=== PATIENT | female | born 1950 | race Caucasian/White ===

== ENCOUNTER → 2023-02-24 15:00 | Outpatient (CLI) | payer OTHER, SELFPAY ==
--- NOTE | ~2023-02-24 | XR_ITS ---
EXAM: XR ankle LT min 3V, XR foot LT min 3V DATE: 02/24/2023 15:49 HISTORY: LEFT ANKLE PAIN . COMPARISON: None available. FINDINGS: Decreased mineralization. No fracture or dislocation. No lytic or blastic lesion. Mild coty lux valgus. Mild degenerative change in the tibiotalar. Moderate degenerative change in the midfoot. Minimal Achilles and plantar enthesopathy. Pes planus. No erosion or periosteal change. Medial ankle soft tissue swelling. 2 subcutaneous edema. Calcified phleboliths. IMPRESSION: No acute osseous finding in the left ankle or foot. Reviewed, dictated and finalized at location K. IMPRESSION: No acute osseous finding in the left ankle or foot.
== END ==
PROVIDERS: PCP Internal Medicine; Visit Provider Nurse Practitioner
DX: M25.572 Pain in left ankle and joints of left foot (principal); M79.672 Pain in left foot
CPT/HCPCS: 73610; 73630

== ENCOUNTER 2023-08-20 11:37 | Outpatient (CLI) | payer OTHER, SELFPAY ==
--- NOTE | ~2023-08-20 | US_ITS ---
EXAMINATION: US venous doppler LE RT DATE: 08/20/2023 12:49 INDICATION: Right lower limb pain. TECHNIQUE: Grayscale ultrasound images without and with compression and Doppler ultrasound images of the right lower extremity veins were obtained. COMPARISON: None. FINDINGS: The visualized portions of right common femoral vein, profunda (deep) femoral vein, femoral vein, pop liteal vein, peroneal veins, posterior tibial veins, and greater saphenous vein outflow are patent. T here is a moderate-sized Grajeda's cyst. IMPRESSION: 1. No deep venous thrombosis. 2. Moderate-sized Grajeda's cyst. Reviewed, dictated and finalized at location A. 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
== END 2023-08-20 11:38 | disposition home or self-care (01) ==
PROVIDERS: PCP Internal Medicine; Visit Provider Nurse Practitioner
DX: M71.21 Synovial cyst of popliteal space [Baker], right knee (principal)
CPT/HCPCS: 93971

== ENCOUNTER 2025-06-08 18:38 | Observation (INO) | payer OTHER, SELFPAY ==
--- NOTE | ~2025-06-08 | CT_ITS ---
EXAM: CTA brain carotid - 06/08/2025 0:00 CDT History: 75 years old Female with vertigo TECHNIQUE: CT scan of the head without contrast. Subsequently CTA of the head and neck with intravenous contrast was performed. 3-D reconstructed images of cerebral artery circulation were generated on a [employer] workstation. Automatic exposure control was used for this study. CONTRAST: 100 cc of Omnipaque 350 was used for this study COMPARISON: None available. FINDINGS: CT HEAD WITHOUT CONTRAST: BRAIN PARENCHYMA: Felipe-white differentiation is maintained.No intra-axial hemorrhage or midline shift. No evidence of intraaxial mass. Mild chronic volume loss with scattered white matter hypodensities compatible with chronic microvascular ischemic changes. VENTRICLES/ EXTRA-AXIAL SPACES: No extra-axial hemorrhage or fluid collection. No evidence of extra-axial mass. No hydrocephalus. CALVARIUM AND SINUSES: No calvarial fracture. The visualized sinuses and mastoid air cells are clear. CTA: Normal branching pattern of the thoracic aorta. Great vessels of the neck are patent. RIGHT ANTERIOR CIRCULATION: Innominate and right common carotid artery is normal in caliber. No significant stenosis at the carotid bifurcation by NASCET criteria. Cervical segment of the internal carotid artery is normal in caliber. Cavernous and supraclinoid segments of the internal carotid artery patent. M1 segment and middle cerebral artery bifurcation are unremarkable. A1 segment, anterior communicating artery complex and A2 segment are within normal limits. LEFT ANTERIOR CIRCULATION: Left common carotid artery is normal in caliber. No significant stenosis at the carotid bifurcation by NASCET criteria. Cervical segment of the internal carotid artery is normal in caliber. Cavernous and supraclinoid segments of the internal carotid artery patent. M1 segment and middle cerebral artery bifurcation are unremarkable. A1 segment, anterior communicating artery complex and A2 segment are within normal limits. POSTERIOR CIRCULATION: Vertebral arteries are codominant and patent throughout the neck. Intradural vertebral arteries are normal in caliber and terminate as the basilar artery. Basilar artery is normal in caliber. P1 and P2 segments of the posterior cerebral arteries are normal in caliber. OTHER: Multilevel degenerative changes of the visualized cervical spine. Visualized lungs are clear. IMPRESSION: No evidence for acute intracranial hemorrhage or acute ischemic infarct on non- contrast CT. Unremarkable CTA of the head and neck. No evidence of cerebral artery aneurysm, stenosis or mass. *REFERENCES: NASCET CRITERIA: The degree of internal carotid artery (ICA) stenosis is based on NASCET criteria. Normal is no stenosis. Mild is less than 50% stenosis. Moderate is 50-69% stenosis. Severe is 70-99% stenosis. Total occlusion is no detectable patent lumen. Reviewed, dictated and finalized at location N. IMPRESSION: No evidence for acute intracranial hemorrhage or acute ischemic infarct on non- contrast CT. Unremarkable CTA of the head and neck. No evidence of cerebral artery aneurysm , stenosis or mass. *REFERENCES: NASCET CRITERIA: The degree of internal carotid artery (ICA) stenosis is based on NASCET criteria. Normal is no stenosis. Mild is less than 50% stenosis. Mode rate is 50-69% stenosis. Severe is 70-99% stenosis. Total occlusion is no detec table patent lumen.
--- NOTE | ~2025-06-08 | XR_ITS ---
XR chest 2V 06/08/2025 19:11 Indication: Dizziness Procedure: AP view of the chest Comparison: No prior studies for comparison. Findings: Cardiomegaly. There is hiatal hernia. No focal air space disease, pulmonary edema, pleural effusion or suspected pneumothorax. Impression: 1: No acute cardiopulmonary disease. Reviewed, dictated and finalized at location O. Impression: 1: No acute cardiopulmonary disease.
--- NOTE | ~2025-06-08 | MR_ITS ---
EXAMINATION: MR brain/brain stem wo/w con DATE: 06/09/2025 10:22 INDICATION: Vertigo TECHNIQUE: Magnetic resonance imaging (MRI) of the brain and brainstem was performed without and with 20 mL Multihance intravenous contrast. Sequences included sagittal and axial T1-weighted SE, axial diffusion-weighted FS SE, axial 3D SWAN, axial T2-weighted FLAIR, and axial T2-weighted FSE. Postcontrast axial and coronal T1-weighted SE was obtained. Apparent diffusion coefficient (ADC) maps were created. COMPARISON: Head CT and CT angiogram dated 06/09/2025 FINDINGS: There are no areas of restricted diffusion to suggest acute infarction. No intracranial hemorrhage or abnormal intracranial mass lesion. There are no intraparenchymal signal abnormalities seen on the other pulse sequences. The ventricles are symmetric and normal in size. There are no abnormal extra-axial fluid collections. Flow voids are seen in the cerebral arteries on the T2- weighted sequences consistent with their expected patency. Visualized orbits and soft tissues are unremarkable. There are no areas of abnormal enhancement on the post contrast images. IMPRESSION: 1. Normal brain MR. Reviewed, dictated and finalized at location A. IMPRESSION: 1. Normal brain MR.
--- NOTE | 2025-06-08 18:49 | ECG_ITS ---
Test Date: 2025-06-08 18:53:12 Measurements Intervals [place] Rate: 65 P: 9 [place]: 191 QRS: -25 QRSD: 97 T: 38 QT: 425 QTc: 444 Interpretive Statements SINUS RHYTHM BORDERLINE LEFT AXIS DEVIATION [QRS AXIS < -20] No previous ECG available for comparison Electronically Signed On 06-09-2025 11:30:35 CDT by Jonas Verdugo M.D.
[2025-06-08 18:50] VITALS: BP 156/85; PULSE 63; RESP 18; O2SAT 96
[2025-06-08 19:05] LABS: Hematocrit 42.1 % (37.0-47.0); Hemoglobin 13.9 g/dL (12.0-15.0); Immature Granulocyte Percent A 0.3 % (0-0.5); Lymphocytes Absolute Auto 2.71 K/mm3 (0.9-3.2); Mean Corpuscular HGB Conc 33.0 g/dl (32-36); Mean Corpuscular Hemoglobin 32.3 pg (26-34); Mean Corpuscular Volume 97.9 fl (80-100); Nucleated Red Blood Cells Absolute Auto 0.000 K/mm3 (0.0-0.012); Nucleated Red Blood Cells Perc 0.0 % (0.0-0.2); Platelet Count Result 249 k/mm3 (150-375); Red Blood Count 4.30 M/mm3 (4.2-5.4); White Blood Count 10.3 K/mm3 (4.5-10.0)
[2025-06-08] MEDS: ONDANSETRON INJ 4 MG/2 ML VIAL IV PUSH (19:05)
[2025-06-08 19:16] LABS: Alanine Aminotransferase 17 U/L (6-35); Albumin Level 4.2 g/dL (3.5-5.1); Alkaline Phosphatase 105 U/L (38-126); Anion Gap 10 mmol/L (4-12); Aspartate Amino Transferase 25 U/L (14-36); Bilirubin,Total 0.7 mg/dL (0.2-1.3); Blood Urea Nitrogen 16 mg/dL (7-17); Calcium 9.6 mg/dL (8.4-10.2); Carbon Dioxide 28 mmol/L (22-30); Chloride 94 mmol/L (98-107); Estimated CRCL calculation 59 ml/min; Estimated Glomerular Filt Rate > 60; Glucose 176 mg/dL (65-110); Potassium 3.6 mmol/L (3.4-5.0); Sodium 132 mmol/L (137-145); Total Protein 7.3 g/dL (6.3-8.2)
[2025-06-08 19:23] VITALS: BP 120/78; PULSE 63; RESP 18; TEMP 36.2; O2SAT 94
--- OUTSIDE RECORDS SUMMARY | 2025-06-08 20:07 | XMS_ITS | Clinical Summary ---
Author Organization [facility] Address [address] [place] [address] Care Team Providers Care Supervisor Toy Assembly Name Role Phone Lc Tay MD Unavailable [phone] Dylan Canseco MD Primary Care Provider [phone] Source Comments [facility],non-owned Affiliates and Associated Physician Practices is amultiple site organization consisting of ambulatory clinics and hospital sitesin [place], [place], [place] and [place]. This disclosure is being madepursuant to the Care Everywhere program and may not contain all information available regarding this patient. Last updated 18.[facility] Allergies Active Allergy Reactions Criticality Noted Date Comments Cefuroxime Itching Low 11/11/2017 Shellfish-Derived Products Nausea and/or Vomiting 12/09/2013 Sulfa Drugs Swelling 07/25/2017 Medications * Be aware that medications may not be up to date on this document. Alwaysverify current medications with the patient. metoprolol succinate XL 24hr (TOPROL XL) 100 MG tablet Take 1 (one) tablet by mouth once daily 7 Active hydroCHLOROthia zide (MICROZIDE) 12.5 MG capsule Take 1 (one) capsule by mouth once daily 7 Active cetirizine (ZYRTEC) 10 MG tablet Take 1 (one) tablet by mouth once daily Active triamcinolone (NASACORT ALLERGY 24HR) 55 MCG/ACT nasal inhaler Amma 1 (one) spray into each nostril once daily Active omeprazole EC (PRILOSEC OTC) 20 MG tablet Take 1 (one) tablet by mouth daily before breakfast Active Biotin 5000 MCG Take 1 (one) capsule by mouth once daily Active Calcium Carb-Cholecalci ferol (CALCIUM + D3 PO) Take 1 Tab by mouth once daily Active cyanocobalamin (VITAMIN B-12) 1000 MCG tablet Take 1 (one) tablet by mouth once daily Active Cholecalciferol (VITAMIN D3) 2000 UNITS Take by mouth once daily Active losartan (Cozaar) 25 MG tablet Take 1 (one) tablet by mouth once daily 4 Active Cranberry 50 MG Take 1 tablet by mouth once daily Active albuterol HFA (Proventil; Ventolin; Proair) 108 (90 Base) MCG/ACT inhaler Inhale 1 (one) puff to 2 (two) puffs by mouth every 6 hours as needed 4 Active gabapentin (Neurontin) 100 MG capsule Take 1 (one) capsule by mouth 2 times daily 4 Active Other Take 1 tablet by mouth 2 times daily Viviscal- hair growth Active acetaminophen (Tylenol) 500 MG capsule Take 2 (two) capsules by mouth 3 times daily Take for ten days then as needed. 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 Monthly or less 10/27/2024 Q2: How many drinks containi ng alcohol do you have on a typical day when you are drinking? Patient does not drink Q3: How often do you have si x or more drinks on one occasion? Never 10/27/2024 PHQ-2 Answer Date Recorded Patient Health Questionnaire-2 Score 1 04/01/2024 Hunger Vital Sign Answer Date Recorded Within the past 12 months, y ou worried that your food would run out before you got the money to buy more. Never true 10/27/19 25 Within the past 12 months, t he food you bought just didn't last and you didn't have money to get more. Never true 10/27/2024 Comments Unknown Sex and Gender Information Value Date Recorded Sex Assigned at Not on file Legal Sex Female 9:35 AM CDT Gender Identity Not on file Sexual Orientation Not on file Last Filed Vital Signs Vital Sign Reading Time Taken Comments Blood Pressure 141/63 10/28/2024 9:14 AM RESTAURANT HOST/HOSTESS Pulse 80 10/28/2024 9:14 AM RESTAURANT HOST/HOSTESS Temperature 36.6 C (97.9 F) 10/28/2024 7:35 AM RESTAURANT HOST/HOSTESS Respiratory Rate 17 10/28/2024 7:35 AM RESTAURANT HOST/HOSTESS Oxygen Saturation 92% 10/28/2024 9:14 AM RESTAURANT HOST/HOSTESS Inhaled Oxygen Concentration - - Weight 104.2 kg (229 lb 12.8 oz) 10/27/2024 6:06 AM RESTAURANT HOST/HOSTESS Height 163.8 cm (5' 4.5) 10/27/2024 6:06 AM RESTAURANT HOST/HOSTESS Body Mass Index 38.84 10/27/2024 6:06 AM RESTAURANT HOST/HOSTESS Plan of Treatment Health Maintenance Due Date Last Done Comments BONE DENSITY TESTING 1950 COLOGUARD (AGES 45-75) - COL ON CA SCREENING 1950 COLON MONITORING 1950 COLONOSCOPY - COLON CA SCREENING 1951 CT COLONOGRAPHY - COLON CA SCREENING 1950 Colorectal Cancer Screening 1950 FIT - COLON CA SCREENING 1950 FLEX SIG - COLON CA SCREENING 1950 MAMMOGRAM 1950 MEDICARE AWV 12 MONTHS 1950 DTAP/TDAP/TD VACCINES (1 - Tdap) 1970 PNEUMOCOCCAL VACCINE 50+ (1 of 2 - PCV) 1970 ZOSTER VACCINE (1 of 2) 2001 Respiratory Syncytial Virus (RSV) Vaccine Pt: or over 60 yrs (1 - Risk 60-74 years 1-dose series) 2011 COVID-19 VACCINE (1 - 2023-2 5 season) 2024 DEPRESSION SCREENING 10/06/2024 04/01/2024 INFLUENZA VACCINE (#1) 2025 08/07/2023 LIPID TESTING 03/18/2028 03/18/2023 HEPATITIS C SCREENING Completed 02/18/2022 HEPATITIS B VACCINE Aged Out No longe r eligible based on patient's age to complete this topic HIB VACCINE Aged Out No longer eligi ble based on patient's age to complete this topic HPV VACCINE Aged Out No longer eligi ble based on patient's age to complete this topic MENINGOCOCCAL (Group B) VACC INE SHARED DECISION-MAKING Aged Out No longer eligibl e based on patient's age to complete this topic MENINGOCOCCAL GROUPS A/C/Y/W VACCINE Aged Out No longer eligible b ased on patient's age to complete this topic Medical Devices Implanted Type Area Apartment Locator Device Identifier Shelf Expiration Date Model / Serial / Lot Cmnt Bone Cblt 40gm Hvisc Strl Implanted:Qty: 1 on 10/27/2017 by Lc Tay MD at [facility] Left: Knee [employer] 06/05/2019 [id number] / / [id number] Cmpnt Fem Kn Lt Cr Cmnt Prm Vngrd Intlk Implanted:Qty: 1 on 10/27/2017 by Lc Tay MD at [facility] Left: Knee [employer] 09/09/2027 [id number] / / [id number] Tray Tib 75mm Kn Cocr I Beam Implanted:Qty: 1 on 10/27/2017 by Lc Tay MD at [facility] Left: Knee [employer] 06/25/2027 [id number] / / [id number] Cmpnt Ptlr 28mm 1 Pg Wire Ascnt Arcm Kn Implanted:Qty: 1 on 10/27/2017 by Lc Tay MD at [facility] Left: Knee [employer] 09/24/2022 [id number] / / [id number] Brng [id number] Vngrd Arcm Kn Ant Stab Implanted:Qty: 1 on 10/27/2017 by Lc Tay MD at [facility] Left: Knee [employer] 08/06/2022 [id number] / / [id number] Cmpnt Ptlr Std 28mm 3 Pg Kn Ser A Implanted:Qty: 1 on 10/27/2024 by Lc Tay MD at [facility] Right: Knee [employer] 09/14/2029 [id number] / / [id number] Torrey Brng [id number] Vngrd Vivacit-E Kn Ant S Implanted:Qty: 1 on 10/27/2024 by Lc Tay MD at [facility] Right: Knee [employer] 10/30/2027 [id number] [place] / / [id number] Cmnt Bone Plc R 40gm Grn Implanted:Qty: 1 on 10/27/2024 by Lc Tay MD at [facility] Right: Knee [employer] 01/03/2027 [id number] / / [id number] Cmnt Bone Plc R 40gm Grn Implanted:Qty: 1 on 10/27/2024 by Lc Tay MD at [facility] Right: Knee [employer] 10/05/2026 [id number] / / [id number] Cmpnt Fem Kn Rt Cr Cmnt Prm Vngrd Intlk 70 Mm Implanted:Qty: 1 on 10/27/2024 by Lc Tay MD at [facility] Right: Knee [employer] 08/17/2034 [id number] / / [id number] Tray Tib 75mm Kn Cocr I Beam Implanted:Qty: 1 on 10/27/2024 by Lc Tay MD at [facility] Right: Knee [employer] 08/10/2034 [id number] / / [id number] Insurance MEDICARE Advance Directives * Full Code (Latest Code Status on File) Date Activated Date Inactivated Comments 10/27/2024 10:19 AM 10/28/2024 1:00 PM * Full Code Date Activated Date Inactivated Comments 10/27/2017 11:17 AM 10/29/2017 1:47 PM Care Teams Supervisor Toy Assembly Relationship Specialty Start Date End Date Dylan Canseco MD [address] [place] [id number] PCP - General Internal Medicine 10/13/24 [place] [id number] [facility] [address] [place] [id number] Orthopedic Surgery 02/07/17
--- NOTE | 2025-06-08 20:13 | ED.DIZZY ---
HPI - Dizziness General Chief Complaint: Dizziness <Maki Garcia PA-C - Last Filed: 06/09/25 01:58> Stated Complaint: dizziness <Maki Garcia PA-C - Last Filed: 06/09/25 01:58> Time Seen by Provider: 06/08/25 19:46 <Maki Garcia PA-C - Last Filed: 06/09/25 01:58> History of Present Illness HPI Narrative: 75-year-old female with reported history of hypertension and vertigo presents to the emergency department for dizziness. Patient states at 5:30 p.m. she had just finished eating mostaccioli and ice cream when she was sitting watching TV and developed dizziness, epigastric abdominal cramping and diaphoresis. Patient states the dizziness feels like the room is spinning. She states it improves when she sits still and it worsens when she looks around quickly. She denies diplopia, loss of vision, focal numbness or weakness, chest pain, shortness of breath, vomiting, diarrhea, fever, urinary complaints. She has had some nausea. Patient notes she has chronic sinus issues in her ears feel full currently. <Maki Garcia PA-C - Last Filed: 06/09/25 01:58> Related Data Home Medications: Home Medications ?Medication ?Instructions ?Recorded ?Confirmed ?Last Taken ?Type albuterol sulfate 90 mcg/actuation 2 puff inhalation Q6H PRN 06/09/25 06/09/25 Unknown History aerosol inhaler shortness of breath or wheezing aspirin 81 mg capsule 81 mg PO DAILY 06/09/25 06/09/25 06/08/25 History biotin 1,000 mcg chewable tablet 1,000 mcg PO DAILY 06/09/25 06/09/25 06/08/25 History calcium 600 mg (as 1 tablet PO DAILY 06/09/25 06/09/25 06/08/25 History carbonate)-vitamin D3 10 mcg (400 unit) tablet (Calcium 600 + D(3)) cetirizine 10 mg capsule (Zyrtec) 10 mg PO DAILY 06/09/25 06/09/25 06/08/25 History cholecalciferol (vitamin D3) 125 125 mcg PO DAILY 06/09/25 06/09/25 06/08/25 History mcg (5,000 unit) tablet (Vitamin D3) cranberry 500 mg capsule 500 mg PO DAILY 06/09/25 06/09/25 06/08/25 History cyanocobalamin (vitamin B-12) 500 500 mcg PO DAILY 06/09/25 06/09/25 06/08/25 History mcg tablet gabapentin 100 mg capsule 100 mg PO TID 06/09/25 06/09/25 06/08/25 History hydrochlorothiazide 12.5 mg capsule 25 mg PO EVERY OTHER DAY 06/09/25 06/09/25 06/08/25 History losartan 25 mg tablet 25 mg PO DAILY 06/09/25 06/09/25 06/08/25 History metoprolol succinate 100 mg 100 mg PO DAILY 06/09/25 06/09/25 06/08/25 History tablet,extended release 24 hr omeprazole magnesium 20 mg 20 mg PO DAILY 06/09/25 06/09/25 06/08/25 History tablet,delayed release (Prilosec OTC) triamcinolone acetonide 55 mcg 1 spray intranasal DAILY 06/09/25 06/09/25 06/08/25 History nasal spray aerosol (Nasacort) <Maki Garcia PA-C - Last Filed: 06/09/25 01:58> Allergies/Adverse Reactions: Allergies Allergy/AdvReac Type Severity Reaction Status Date / Time cefuroxime Allergy Swelling Verified 06/09/25 02:55 of the Eye clindamycin Allergy Rash Verified 06/09/25 02:55 Sulfa (Sulfonamide Allergy Swelling Verified 06/09/25 02:55 Antibiotics) of the Eye seafood Allergy Severe Anaphylactic Uncoded 06/09/25 02:55 Shock <SARA Mills Last Filed: 06/09/25 01:58> Review of Systems Review of Systems: All systems reviewed & are unremarkable except as noted in HPI and below <SARA Mills Last Filed: 06/09/25 01:58> PMFSH Family History Family History: Family History (Updated 06/09/25 @ 04:18 by Mara Delgado RN) Mother Arrhythmia Pancreatic cancer Father CHF (congestive heart failure) Emphysema of lung <SARA Mills Last Filed: 06/09/25 01:58> Social History Social History: Social History Smoking status: Never smoker Alcohol intake: current Drinks per week: 4 Substance use: never Lack of Transportation: No Lack of Food: Never True Current Housing: I Have Housing Concerned About Future Housing: No Difficulty Paying Gas/Electric Bills: No Difficulty Paying for Meds: No Currently Unemployed: YES Education: Decline to Answer Difficulty w/ Childcare or Family Care: No Spiritual care concerns: No <Maki Garcia PA-C - Last Filed: 06/09/25 01:58> Exam Narrative: GENERAL: Well-appearing, well-nourished, and in no acute distress. HEAD: Normocephalic, atraumatic. EYES: PERRLA and EOMI. Unidirectional horizontal nystagmus ENT: Nares clear, no rhinorrhea or epistaxis. Mucous membranes moist. Left TM with tympanosclerosis, no bulging or erythema, canal normal. Right TM with serous effusion, no bulging or erythema. Canal normal. NECK: Supple. CHEST: Clear to auscultation. No respiratory distress. HEART: Regular rate and rhythm. No murmur heard. Normal peripheral pulses. ABDOMEN: Soft, nontender, nondistended, normal active bowel sounds. EXTREMITIES: Normal range of motion. No edema. SKIN: Warm, dry, no rash. NEURO: No focal deficits. Alert and oriented x4. Cranial nerves 2-12 intact. Strength 5/5 in BUE and BLE. Sensation intact throughout. Normal epcclc-nl-mrsd. No pronator drift. <Maki Garcia PA-C - Last Filed: 06/09/25 01:58> Course CORE STICKER/PA Physician Supervision This visit was performed by both a physician and an APC. I performed all aspects of the MDM as documented. <Raulito Lewis MD - Last Filed: 06/09/25 04:33> Vital Signs Vital signs: Vital Signs Pulse Rate 63 06/08/25 18:50 Respiratory Rate 18 06/08/25 18:50 Blood Pressure 156/85 H 06/08/25 18:50 Pulse Oximetry 96 06/08/25 18:50 Oxygen Delivery Room Air 06/08/25 18:50 Temperature 97.2 F L 06/09/25 00:23 Pulse Rate 62 06/09/25 04:00 Respiratory Rate 18 06/09/25 00:23 Blood Pressure 158/85 H 06/09/25 00:23 Pulse Oximetry 97 06/09/25 00:23 Oxygen Delivery Room Air 06/08/25 18:50 <Maki Garcia PA-C - Last Filed: 06/09/25 01:58> Vital Signs Pulse Rate 63 06/08/25 18:50 Respiratory Rate 18 06/08/25 18:50 Blood Pressure 156/85 H 06/08/25 18:50 Pulse Oximetry 96 06/08/25 18:50 Oxygen Delivery Room Air 06/08/25 18:50 Temperature 97.2 F L 06/09/25 00:23 Pulse Rate 62 06/09/25 04:00 Respiratory Rate 18 06/09/25 00:23 Blood Pressure 158/85 H 06/09/25 00:23 Pulse Oximetry 97 06/09/25 00:23 Oxygen Delivery Room Air 06/08/25 18:50 <Raulito Lewis MD - Last Filed: 06/09/25 04:33> MDM - Dizziness MDM Narrative Medical decision making narrative: 75-year-old female presents emergency department for dizziness. Patient developed dizziness, epigastric abdominal cramping and diaphoresis after eating dinner this evening. She describes the dizziness is a spinning sensation that is improved when she sits still and worsens when she moves her head quickly. Vital signs with elevated blood pressure, otherwise unremarkable. Patient is afebrile and nontoxic appearing. She is neurovascularly intact. EKG shows normal sinus rhythm with rate of 65 ppm, normal NV interval, normal QRS duration, normal QTC, no ischemic changes. Troponin is undetectable x2. CBC with mild leukocytosis of 10.3, no anemia. Chemistries with mild hyponatremia of 132 and hypochloremia of 94, no prior for comparison. Fluids provided. Magnesium mildly low at 1.5 which is been intravenously repleted. UA with trace leuk esterase with 3-5 RBCs, no white blood cells or bacteria. Patient denies symptoms of UTI. Chest x-ray shows no acute cardiopulmonary disease. Orthostatic vital signs are normal. Patient received IV fluids, meclizine, Pepcid and Zofran. On re-evaluation states she was still having some dizziness received Valium with improvement, however dizziness returned. Patient was unable to be ambulated due to persistent dizziness. Sx sound vertiginous in nature. Will add on CTA brain and carotid. Will attempt scopolamine patch. Additionally patient is endorsing GERD symptoms, will provide GI cocktail and Protonix. CTA brain carotid shows no acute occlusion, severe stenosis, aneurysm or dissection. Patient re-evaluated and reports resolution of GERD symptoms. She does report improvement of vertigo after scopolamine, however states it is still present. Will trial Reglan. Plan to admit to the hospitalist for intractable vertigo. Patient will likely need MRI for further evaluation. Discussed with hospitalist CORE STICKER, Arely, who agrees to admission. <Maki Garcia PA-C - Last Filed: 06/09/25 01:58> Lab Data Result diagrams: 06/08/25 18:55 06/08/25 18:55 <Maki Garcia PA-C - Last Filed: 06/09/25 01:58> Labs: Lab Results 06/08/25 06/08/25 06/08/25 Range/Units 18:55 20:33 21:59 WBC 10.3 H (4.5-10.0) K/mm3 RBC 4.30 (4.2-5.4) M/mm3 Hgb 13.9 (12.0-15.0) g/dL Hct 42.1 (37.0-47.0) % MCV 97.9 (80-100) fl MCH 32.3 (26-34) pg MCHC 33.0 (32-36) g/dl RDW 14.0 (11.5-14.5) % Plt Count 249 (150-375) k/mm3 MPV 11.2 H (7.4-10.4) fl Immature Gran % (Auto) 0.3 (0-0.5) % Neut % (Auto) 57.4 (45.5-73.1) % Lymph % (Auto) 26.4 (18.3-44.2) % [place] % (Auto) 12.2 H (2.6-8.5) % Eos % (Auto) 3.0 (0-4.4) % Baso % (Auto) 0.7 (0.2-1.2) % Lymph # (Auto) 2.71 (0.9-3.2) K/mm3 [place] # (Auto) 1.3 H (0.1-0.6) K/mm3 Eos # (Auto) 0.3 (0-0.3) K/mm3 Baso # (Auto) 0.1 (0.0-0.1) K/mm3 Abs Immat Gran (auto) 0.03 (0.00-0.031) K/mm3 Absolute Neuts (auto) 5.9 (1.3-6.7) K/mm3 Absolute Nucleated RBC 0.000 (0.0-0.012) K/mm3 Nucleated RBC % 0.0 (0.0-0.2) % PT 13.2 (11.1-14.7) Seconds INR 1.0 APTT 28.0 (22.3-36.8) Seconds Sodium 132 L (137-145) mmol/L Potassium 3.6 (3.4-5.0) mmol/L Chloride 94 L (98-107) mmol/L Carbon Dioxide 28 (22-30) mmol/L Anion Gap 10 (4-12) mmol/L BUN 16 (7-17) mg/dL Creatinine 0.88 (0.7-1.0) mg/dL Estim Creat Clear Calc 59 ml/min Estimated GFR > 60 (59 - ) Glucose 176 H (65-110) mg/dL Calcium 9.6 (8.4-10.2) mg/dL Magnesium 1.5 L (1.6-2.3) mg/dL Total Bilirubin 0.7 (0.2-1.3) mg/dL AST 25 (14-36) U/L ALT 17 (6-35) U/L Alkaline Phosphatase 105 (38-126) U/L Troponin I < 0.012 < 0.012 (0.000-0.034) ng/mL Total Protein 7.3 (6.3-8.2) g/dL Albumin 4.2 (3.5-5.1) g/dL Urine Color Dark yellow (Yellow) Urine Appearance Cloudy H (Clear) Urine pH 5.5 (5.0-9.0) Ur Specific [place] 1.027 (1.001-1.035) Urine Protein Negative (Negative) mg/dL Urine Glucose (UA) Negative (Negative) mg/dL Urine Ketones Trace H (Negative) mg/dL Ur Blood (Man) Negative (Negative) Urine Nitrate Negative (Negative) Urine Bilirubin Negative (Negative) Urine Urobilinogen 1.0 (<2.0) mg/dL Leukocyte Esterase Rfl Trace H (Negative) LUZ/UL Urine RBC 3-5 H (0-2) /hpf Urine WBC 0-5 (0-3) /hpf Ur Squamous Epith Cells Moderate (Few) /hpf Urine Bacteria None seen /hpf Urine Casts 0-2 <Maki Garcia PA-C - Last Filed: 06/09/25 01:58> Lab Results 06/08/25 06/08/25 06/08/25 Range/Units 18:55 20:33 21:59 WBC 10.3 H (4.5-10.0) K/mm3 RBC 4.30 (4.2-5.4) M/mm3 Hgb 13.9 (12.0-15.0) g/dL Hct 42.1 (37.0-47.0) % MCV 97.9 (80-100) fl MCH 32.3 (26-34) pg MCHC 33.0 (32-36) g/dl RDW 14.0 (11.5-14.5) % Plt Count 249 (150-375) k/mm3 MPV 11.2 H (7.4-10.4) fl Immature Gran % (Auto) 0.3 (0-0.5) % Neut % (Auto) 57.4 (45.5-73.1) % Lymph % (Auto) 26.4 (18.3-44.2) % [place] % (Auto) 12.2 H (2.6-8.5) % Eos % (Auto) 3.0 (0-4.4) % Baso % (Auto) 0.7 (0.2-1.2) % Lymph # (Auto) 2.71 (0.9-3.2) K/mm3 [place] # (Auto) 1.3 H (0.1-0.6) K/mm3 Eos # (Auto) 0.3 (0-0.3) K/mm3 Baso # (Auto) 0.1 (0.0-0.1) K/mm3 Abs Immat Gran (auto) 0.03 (0.00-0.031) K/mm3 Absolute Neuts (auto) 5.9 (1.3-6.7) K/mm3 Absolute Nucleated RBC 0.000 (0.0-0.012) K/mm3 Nucleated RBC % 0.0 (0.0-0.2) % PT 13.2 (11.1-14.7) Seconds INR 1.0 APTT 28.0 (22.3-36.8) Seconds Sodium 132 L (137-145) mmol/L Potassium 3.6 (3.4-5.0) mmol/L Chloride 94 L (98-107) mmol/L Carbon Dioxide 28 (22-30) mmol/L Anion Gap 10 (4-12) mmol/L BUN 16 (7-17) mg/dL Creatinine 0.88 (0.7-1.0) mg/dL Estim Creat Clear Calc 59 ml/min Estimated GFR > 60 (59 - ) Glucose 176 H (65-110) mg/dL Calcium 9.6 (8.4-10.2) mg/dL Magnesium 1.5 L (1.6-2.3) mg/dL Total Bilirubin 0.7 (0.2-1.3) mg/dL AST 25 (14-36) U/L ALT 17 (6-35) U/L Alkaline Phosphatase 105 (38-126) U/L Troponin I < 0.012 < 0.012 (0.000-0.034) ng/mL Total Protein 7.3 (6.3-8.2) g/dL Albumin 4.2 (3.5-5.1) g/dL Urine Color Dark yellow (Yellow) Urine Appearance Cloudy H (Clear) Urine pH 5.5 (5.0-9.0) Ur Specific [place] 1.027 (1.001-1.035) Urine Protein Negative (Negative) mg/dL Urine Glucose (UA) Negative (Negative) mg/dL Urine Ketones Trace H (Negative) mg/dL Ur Blood (Man) Negative (Negative) Urine Nitrate Negative (Negative) Urine Bilirubin Negative (Negative) Urine Urobilinogen 1.0 (<2.0) mg/dL Leukocyte Esterase Rfl Trace H (Negative) LUZ/UL Urine RBC 3-5 H (0-2) /hpf Urine WBC 0-5 (0-3) /hpf Ur Squamous Epith Cells Moderate (Few) /hpf Urine Bacteria None seen /hpf Urine Casts 0-2 <Raulito Lewis MD - Last Filed: 06/09/25 04:33> Discharge Plan Discharge Clinical Impression: Hypomagnesemia, Vertigo <Maki Garcia PA-C - Last Filed: 06/09/25 01:58> Patient Disposition: Still a Patient <Maki Garcia PA-C - Last Filed: 06/09/25 01:58> Condition: Stable <Maki Garcia PA-C - Last Filed: 06/09/25 01:58>
[2025-06-08 20:28] LABS: Magnesium 1.5 mg/dL (1.6-2.3)
[2025-06-08] MEDS: FAMOTIDINE 20 MG/2 ML VIAL IV PUSH (20:39)
[2025-06-08] MEDS: MECLIZINE HCL 25 MG TABLET PO (20:39)
[2025-06-08 20:40] LABS: Troponin I < 0.012 ng/mL (0.000-0.034)
[2025-06-08] MEDS: SODIUM CHLORIDE 0.9% IV 1,000 ML 999 ML IV CONT (20:41)
[2025-06-08] MEDS: MAGNESIUM SULF 1 GM/D5W 100 ML 1 GM/100 ML BAG IVPB (20:44)
[2025-06-08 20:53] LABS: Add Urine Microscopic? YES; Appearance Urine Cloudy (Clear); Glucose Urine UA Negative (Negative); Leukocyte Esterase Ur Trace LEU/UL (Negative); Nitrate Urine Negative (Negative); Non Pathogenic Casts 0-2; Specific Grav Ur 1.027 (1.001-1.035)
--- NOTE | 2025-06-08 21:55 | ECG_ITS ---
Test Date: 2025-06-08 22:17:51 Measurements Intervals [place] Rate: 66 P: -40 CT: 148 QRS: -28 QRSD: 84 T: 26 QT: 402 QTc: 422 Interpretive Statements SINUS RHYTHM BORDERLINE LEFT AXIS DEVIATION [QRS AXIS < -20] Compared to ECG 06/08/2025 18:53:12 No significant changes Electronically Signed On 06-09-2025 11:33:07 CDT by Jonas Verdugo M.D.
[2025-06-08 21:58] VITALS: BP 123/77; PULSE 62
[2025-06-08 22:01] VITALS: BP 139/85; PULSE 56
[2025-06-08 22:02] VITALS: BP 145/106; PULSE 64
[2025-06-08] MEDS: diazePAM INJ (*CRX) 10 MG/2 ML SYRINGE 5 MG IV PUSH (22:08)
[2025-06-08 22:25] LABS: Troponin I < 0.012 ng/mL (0.000-0.034)
[2025-06-09] VITALS (12 sets, daily range): BP systolic 106–158; BP diastolic 59–85; PULSE 53–72; RESP 16–19; TEMP 36.2–36.6; O2SAT 93–97; BMI 40.0; BMI 40.6
[2025-06-09] MEDS: BELLADONNA ALK/PHENOB ELIX 10 ML, MAG HYDROX/ALUMINUM HYD/SIMETH 30 ML, LIDOCAINE 2% VI... PO (00:19)
[2025-06-09] MEDS: SCOPOLAMINE 1 MG PATCH 1 PATCH TRANSDERM (00:19)
[2025-06-09] MEDS: PANTOPRAZOLE SODIUM IV 40 MG VIAL IV PUSH (00:19)
[2025-06-09 00:20] LABS: INR 1.0; Partial Thromboplastin Time 28.0 Seconds (22.3-36.8); Prothrombin Time 13.2 Seconds (11.1-14.7)
[2025-06-09] MEDS: METOCLOPRAMIDE HCL INJ 10 MG/2 ML VIAL IV PUSH (02:01)
--- NOTE | 2025-06-09 02:42 | PC.NURSE ---
This patient, Debo Le, was admitted to IMU Room 206-02. Patient/family oriented to hospital policies and general routines including ID bracelet, bed and alarms, visiting hours, pain management, procedures, bathroom and other care routines, personal items, smoking policy, room service/diet, and visiting hours. Information on how to activate the Rapid Response Team has been discussed. Patient/Family are encouraged to report perceived risks to care and to ask questions if they do not understand what they are told or what they should do.
--- NOTE | 2025-06-09 06:19 | PM.IMHP ---
H&P: HPI History of Present Illness Date/Time: 06/09/25 06:19 Chief Complaint: Dizziness Narrative: This is a 75-year-old female patient with a history of hypertension. The patient presented to the emergency room with complaints of dizziness. Patient stated that she was sitting in her chair watching TV around 5:30 p.m. last night. She was sitting in her chair eating watching TV when she developed this dizziness, epigastric abdominal cramping and diaphoresis. She stated the room was spinning. It was not related to position.She stated that she has been having severe allergies. she has been using nasal sprays for her allergies. The patient stated that she feels fullness in her ear and has some head congestion. The patient stated she feels that the room is spinning whether she is standing or sitting. It is not positional. She denies any chest pain or shortness of breath. Her chest x-ray was read as no acute cardiopulmonary disease. ER reported that her head and neck CTA were negative. She was given Zofran, IV fluids, meclizine, Valium, Reglan, and a scopolamine patch to the emergency room. Patient stated that her vertigo was intractable. She was also complaining of an upset stomach and was given Pepcid and a GI cocktail as well as Protonix. Her white count was noted to be 10.3. Her sodium was low at 132, chloride 94, and glucose 176. Troponins were negative. Her magnesium level slightly low at 1.5 and she was supplemented with IV magnesium in the emergency room. The patient is being admitted to IMU for observation status on the date of service of 06/09/2025. Review of Systems Review of Systems: All systems reviewed & are unremarkable except as noted in HPI and below Constitutional: Constitutional: Reports as per HPI and Reports no additional constitutional complaints Eyes: Eyes: Reports as per HPI and Reports no additional eye complaints ENT: Reports system reviewed and no additional complaints, except as documented and Reports Normal hearing present Cardiovascular: Cardiovascular: Reports no additional cardiovascular complaints Respiratory: Respiratory: Reports no additional respiratory complaints and Reports no additional respiratory complaints Gastrointestinal: Gastrointestinal: Reports as per HPI and Reports no additional gastrointestinal complaints Musculoskeletal: Musculoskeletal: Reports no additional musculoskeletal complaints Integumentary/Breasts: Skin/Breast: Reports system reviewed and no additional complaints, except as docu and Reports as per HPI Neurologic: Reports system reviewed and no additional complaints, except as documented and Reports as per HPI Psychiatric: Psychiatric: Reports no additional psychiatric complaints and Reports as per HPI Endocrine: Endocrine: Reports no additional endocrine complaints Hematologic/Lymphatic: Hematologic/Lymphatic: Reports no additional hematologic/lymphatic complaints Allergic/Immunologic: Allergic/Immunologic: Reports no additional allergic/immunologic complaints [facility] Past Medical History Medical History (Updated 06/09/25 @ 18:02 by Bret Olmos MD) Benign paroxysmal positional vertigo Cataract Gastroesophageal reflux disease HTN (hypertension) with goal to be determined Seasonal allergic rhinitis Surgical History Surgical History Total knee replacement status Bilateral History of tonsillectomy and adenoidectomy Family History Family History Mother Arrhythmia Pancreatic cancer Father CHF (congestive heart failure) Emphysema of lung Social History Social History Social History: The patient is . Her son continues to live with her. She has 4 children. 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 Smoking status: Never smoker Alcohol intake: current Drinks per week: 4 Substance use: never Lack of Transportation: No Lack of Food: Never True Current Housing: I Have Housing Concerned About Future Housing: No Difficulty Paying Gas/Electric Bills: No Difficulty Paying for Meds: No Currently Unemployed: YES Education: Decline to Answer Difficulty w/ Childcare or Family Care: No Spiritual care concerns: No Meds Home Medications and Allergies Home Medications ?Medication ?Instructions ?Recorded ?Confirmed ?Type albuterol sulfate 90 mcg/actuation 2 puff inhalation Q6H PRN 06/09/25 06/09/25 History aerosol inhaler shortness of breath or wheezing aspirin 81 mg capsule 81 mg PO DAILY 06/09/25 06/09/25 History biotin 1,000 mcg chewable tablet 1,000 mcg PO DAILY 06/09/25 06/09/25 History calcium 600 mg (as 1 tablet PO DAILY 06/09/25 06/09/25 History carbonate)-vitamin D3 10 mcg (400 unit) tablet (Calcium 600 + D(3)) cetirizine 10 mg capsule (Zyrtec) 10 mg PO DAILY 06/09/25 06/09/25 History cholecalciferol (vitamin D3) 125 125 mcg PO DAILY 06/09/25 06/09/25 History mcg (5,000 unit) tablet (Vitamin D3) cranberry 500 mg capsule 500 mg PO DAILY 06/09/25 06/09/25 History cyanocobalamin (vitamin B-12) 500 500 mcg PO DAILY 06/09/25 06/09/25 History mcg tablet gabapentin 100 mg capsule 100 mg PO TID 06/09/25 06/09/25 History hydrochlorothiazide 12.5 mg capsule 25 mg PO EVERY OTHER DAY 06/09/25 06/09/25 History losartan 25 mg tablet 25 mg PO DAILY 06/09/25 06/09/25 History meclizine 25 mg tablet 25 mg PO BID PRN dizziness 14 days 06/09/25 Rx #10 tabs metoprolol succinate 100 mg 100 mg PO DAILY 06/09/25 06/09/25 History tablet,extended release 24 hr omeprazole magnesium 20 mg 20 mg PO DAILY 06/09/25 06/09/25 History tablet,delayed release (Prilosec OTC) triamcinolone acetonide 55 mcg 1 spray intranasal DAILY 06/09/25 06/09/25 History nasal spray aerosol (Nasacort) Allergies Allergy/AdvReac Type Severity Reaction Status Date / Time cefuroxime Allergy Swelling Verified 06/09/25 02:55 of the Eye clindamycin Allergy Rash Verified 06/09/25 02:55 Sulfa (Sulfonamide Allergy Swelling Verified 06/09/25 02:55 Antibiotics) of the Eye seafood Allergy Severe Anaphylactic Uncoded 06/09/25 02:55 Shock Vital Signs Vital Signs - 24 hr 06/08/25 18:50 06/08/25 19:23 06/08/25 21:58 Temperature 97.2 F L Pulse Rate 63 63 62 Respiratory Rate 18 18 Blood Pressure 156/85 H 120/78 123/77 Pulse Oximetry 96 94 Oxygen Delivery Room Air 06/08/25 22:01 06/08/25 22:02 06/09/25 00:23 Temperature 97.2 F L Pulse Rate 56 L 64 69 Respiratory Rate 18 Blood Pressure 139/85 145/106 H 158/85 H Pulse Oximetry 97 Oxygen Delivery 06/09/25 04:00 06/09/25 04:00 06/09/25 04:00 Temperature 97.6 F Pulse Rate 62 71 72 Respiratory Rate 19 Blood Pressure 121/69 Pulse Oximetry 93 Oxygen Delivery Exam Const: General: cooperative, healthy appearing, comfortable, no acute distress, well developed, awake, Physically active, average body habitus and well nourished Nutritional Appearance: average body habitus and well nourished Orientation/consciousness: oriented to person, oriented to place, oriented to time and patient oriented x3 Limitations: no limitations HENMT: Head: normal to inspection, No palpable skull fracture present, normocephalic, atraumatic and abrasion Ears: hearing grossly normal bilaterally and external ears normal Face/Nose/Sinus: Normal external nose present Eyes: General: appearance normal, both eyes and all related structures Alignment and Position: alignment normal Periorbital: periorbital findings normal Eyelids: eyelids normal Conjunctivae: conjunctivae normal EOM: EOMs intact bilaterally Neck: Neck: normal visual inspection, full ROM and no lymphadenopathy Carotids: normal carotid upstroke Lymphatic: no lymphadenopathy noted Chest: Chest palpation & inspection: normal inspection of the chest Resp: Effort & Inspection: normal respiratory effort Auscultation: clear to auscultation bilaterally Cardio: Palpation: normal PMI Rate: regular rate Rhythm: regular rhythm Heart sounds: S1 normal heart sound present and S2 normal heart sound present Peripheral pulses: Peripheral pulses 2+ throughout GI: Inspection: normal to inspection Auscultation: normal bowel sounds Rectal Exam: deferred Back/Spine/Pelvis: Back: no CVA tenderness Cervical Spine: cervical ROM normal Skin: General skin exam: normal color Lesions: no lesions Rashes: no rashes Trauma: no lacerations or abrasions Wounds: no wounds Hair: normal Nails: normal Neuro: General: oriented to person, oriented to place, oriented to time and patient oriented x3 Cranial nerves: Yes CN's II-XII intact bilaterally, Yes facial sensation intact/muscles of mastication intact, Yes Intact sense of smell present, Yes Equal, round and reactive pupils present, Yes Normal accommodation reflex present, Yes Normal hearing present and Yes Nystagmus present with left lateral gaze Cognition (Neuro): normal cognition Speech: normal speech Gait exam (Neuro): Normal gait present Motor exam (neuro): 5/5 motor strength present throughout, Pronator motor function not present, No tremor noted and Motor abnormalities not present Sensory Exam: normal sensation Coordination: [id number] test normal and Normal rapid alternating movements of the distal lower extremity present (Neuro) Extrem: General: normal to inspection Right upper extremity: normal to inspection and shoulder/upper arm Left upper extremity: normal to inspection and shoulder/upper arm Right lower extremity: normal to inspection Left lower extremity: normal to inspection Psych: Appearance: grossly normal Mental Status: mental status grossly normal Speech and movement: Normal speech and movement present Affect: normal affect Attitude: cooperative Thought process: Normal thought process present Thought content: Yes Normal thought content present Insight: Good insight present (Psych) Judgement: Good judgement present (Psych) H&P: Results Labs Labs: Short CBC 06/08/25 Range/Units 18:55 WBC 10.3 H (4.5-10.0) K/mm3 Hgb 13.9 (12.0-15.0) g/dL Hct 42.1 (37.0-47.0) % Plt Count 249 (150-375) k/mm3 BMP 06/08/25 18:55 Sodium 132 L Potassium 3.6 Chloride 94 L Carbon Dioxide 28 BUN 16 Creatinine 0.88 Glucose 176 H Calcium 9.6 Cardiac Enzymes 06/08/25 06/08/25 Range/Units 18:55 21:59 Troponin I < 0.012 < 0.012 (0.000-0.034) ng/mL Liver Function 06/08/25 Range/Units 18:55 Total Bilirubin 0.7 (0.2-1.3) mg/dL AST 25 (14-36) U/L ALT 17 (6-35) U/L Alkaline Phosphatase 105 (38-126) U/L Albumin 4.2 (3.5-5.1) g/dL Urine 06/08/25 Range/Units 20:33 Urine Color Dark yellow (Yellow) Urine Appearance Cloudy H (Clear) Urine pH 5.5 (5.0-9.0) Ur Specific [place] 1.027 (1.001-1.035) Urine Protein Negative (Negative) mg/dL Urine Glucose (UA) Negative (Negative) mg/dL Imaging Chest x-ray: Radiologist's impression: Impressions Chest X-Ray 06/08/25 19:28 Impression: 1: No acute cardiopulmonary disease. Assessment and Plan Assessment and plan (1) Vertigo: Code(s): R42 - Dizziness and giddiness Status: Acute Assessment and Plan: -orthostatic blood pressures every shift. -is reported that her CT of the head and neck was negative. -may consider PT evaluation for vertigo. -the patient stated that this morning that her vertigo is pretty much resolved. -carotid Dopplers have been ordered. -continue with meclizine. -this may be related to debris in the ear. No epileptic procedure has been performed today. -the patient has severe allergies and she should continue with her nasal spray. -MRI of the brain has been ordered as well. -she was given Reglan, IV fluids, and Valium in the emergency room. In the emergency room she did have intractable vertigo. However it sounds like this morning her symptoms have pretty much resolved. -no further IV fluids were continued. -we discussed [place] maneuver and the patient declined at this time. (2) HTN (hypertension) with goal to be determined: Code(s): I10 - Essential (primary) hypertension Status: Acute Assessment and Plan: -blood pressure stable the patient is on metoprolol and will continue with that as long as her blood pressures are stable. -continue losartan -monitor daily BMP (3) Seasonal allergic rhinitis: Code(s): J30.2 - Other seasonal allergic rhinitis Status: Acute Assessment and Plan: -patient is on meclizine which is an antihistamine. -continue with nasal sprays -continue with inhaler (4) Low magnesium level: Code(s): R79.0 - Abnormal level of blood mineral Status: Acute Assessment and Plan: -magnesium level was slightly low and has been replaced in the emergency room. -recheck magnesium later today. Quality VTE Prophylaxis VTE prophylaxis: mechanical ordered
[2025-06-09] MEDS: METOPROLOL SUCCINATE EXT REL 100 MG TABCR PO (09:05)
[2025-06-09] MEDS: MECLIZINE HCL 6.25 MG TABLET PO ×3 (09:05→16:23)
[2025-06-09] MEDS: LOSARTAN POTASSIUM 25 MG TABLET PO (09:06)
[2025-06-09] MEDS: PANTOPRAZOLE 40 MG TABLET PO (09:06)
[2025-06-09] MEDS: CALCIUM/VITAMIN D 500 MG/5 MCG (200 I.U.) TABLET PO (09:06)
[2025-06-09] MEDS: CHOLECALCIFEROL (VITAMIN D3) 125 MCG (5,000 UNITS) TABLET PO (09:06)
[2025-06-09] MEDS: CYANOCOBALAMIN 500 MCG TABLET PO (09:06)
[2025-06-09] MEDS: FLUTICASONE PROPIONATE 0.05% NA SPR 16 GM BTL (*BKC) 2 SPRAY NASAL (09:07)
[2025-06-09 11:30] LABS: Magnesium 1.8 mg/dL (1.6-2.3)
--- NOTE | 2025-06-09 16:41 | PM.DS ---
DS: Admitting Diagnosis Discharge Date 06/09/25 Admitting Diagnosis Dizziness DS: Discharge Diagnosis Discharge Diagnosis (1) Vertigo: Code(s): R42 - Dizziness and giddiness Status: Acute DS: Summary Hospital Course Hospital Course: This is a 75-year-old female patient with a history of hypertension. The patient presented to the emergency room with complaints of dizziness. ER eval CXR, CTA head and neck no acute changes. MRI brain showed normal brain exam. neurology evaluated and deems symptoms likely from inner ear symptoms and thus recommended outpatient vestibular therapy. Patient was discharged with outpatient Vestibular therapy PT. F/u with PCP in 3- 5 days, F/u with Neurology as instructed Time Spent with Patient Time attestation: Total time spent providing and/or coordinating discharge services: DS: Data Data Completed and Pending Labs on day of discharge: Labs from last 24 hours 06/09/25 06/08/25 06/08/25 11:02 21:59 20:33 WBC RBC Hgb Hct MCV MCH MCHC RDW Plt Count MPV Immature Gran % (Auto) Neut % (Auto) Lymph % (Auto) Stephens % (Auto) Eos % (Auto) Baso % (Auto) Lymph # (Auto) Stephens # (Auto) Eos # (Auto) Baso # (Auto) Abs Immat Gran (auto) Absolute Neuts (auto) Absolute Nucleated RBC Nucleated RBC % PT 13.2 INR 1.0 APTT 28.0 Sodium Potassium Chloride Carbon Dioxide Anion Gap BUN Creatinine Estim Creat Clear Calc Estimated GFR Glucose Calcium Magnesium 1.8 Total Bilirubin AST ALT Alkaline Phosphatase Troponin I < 0.012 Total Protein Albumin Urine Color Dark yellow Urine Appearance Cloudy H Urine pH 5.5 Ur Specific [place] 1.027 Urine Protein Negative Urine Glucose (UA) Negative Urine Ketones Trace H Ur Blood (Man) Negative Urine Nitrate Negative Urine Bilirubin Negative Urine Urobilinogen 1.0 Leukocyte Esterase Rfl Trace H Urine RBC 3-5 H Urine WBC 0-5 Ur Squamous Epith Cells Moderate Urine Bacteria None seen Urine Casts 0-2 06/08/25 18:55 WBC 10.3 H RBC 4.30 Hgb 13.9 Hct 42.1 MCV 97.9 MCH 32.3 MCHC 33.0 RDW 14.0 Plt Count 249 MPV 11.2 H Immature Gran % (Auto) 0.3 Neut % (Auto) 57.4 Lymph % (Auto) 26.4 Stephens % (Auto) 12.2 H Eos % (Auto) 3.0 Baso % (Auto) 0.7 Lymph # (Auto) 2.71 Stephens # (Auto) 1.3 H Eos # (Auto) 0.3 Baso # (Auto) 0.1 Abs Immat Gran (auto) 0.03 Absolute Neuts (auto) 5.9 Absolute Nucleated RBC 0.000 Nucleated RBC % 0.0 PT INR APTT Sodium 132 L Potassium 3.6 Chloride 94 L Carbon Dioxide 28 Anion Gap 10 BUN 16 Creatinine 0.88 Estim Creat Clear Calc 59 Estimated GFR > 60 Glucose 176 H Calcium 9.6 Magnesium 1.5 L Total Bilirubin 0.7 AST 25 ALT 17 Alkaline Phosphatase 105 Troponin I < 0.012 Total Protein 7.3 Albumin 4.2 Urine Color Urine Appearance Urine pH Ur Specific [place] Urine Protein Urine Glucose (UA) Urine Ketones Ur Blood (Man) Urine Nitrate Urine Bilirubin Urine Urobilinogen Leukocyte Esterase Rfl Urine RBC Urine WBC Ur Squamous Epith Cells Urine Bacteria Urine Casts Discharge Plan Discharge Attending physician on discharge: Henrry Rust Consulting providers: Bret Olmos Discharging Clinician: Henrry Rust Anticipated Discharge Date/Time: 06/09/25 16:35 Patient Disposition: Home Activity: as tolerated Diet: as tolerated and regular Patient Instructions: Antibiotic Form Patient Language: Spanish Stand Alone Forms: General Discharge Information Follow-up/Referrals: Harleen,Dylan Duarte MD [Primary Care Provider] Referral Note: F/u with PCP in 3-5 days Bret Olmos MD [Physician, Neurology] Referral Note: F/u with Neurology as instructed Discharge Medications: New meclizine 25 mg tablet 25 mg PO BID PRN (Reason: dizziness) 14 Days Qty: 10 0RF Continued albuterol sulfate 90 mcg/actuation HFA aerosol inhaler 2 puff INHALATION Q6H PRN (Reason: shortness of breath or wheezing) gabapentin 100 mg capsule 100 mg PO TID hydrochlorothiazide 12.5 mg capsule 25 mg PO EVERY OTHER DAY losartan 25 mg tablet 25 mg PO DAILY metoprolol succinate 100 mg tablet extended release 24 hr 100 mg PO DAILY aspirin 81 mg capsule 81 mg PO DAILY calcium carbonate-vitamin D3 [Calcium 600 + D(3)] 600 mg-10 mcg (400 unit) tablet 1 tablet PO DAILY cyanocobalamin (vitamin B-12) 500 mcg tablet 500 mcg PO DAILY cholecalciferol (vitamin D3) [Vitamin D3] 125 mcg (5,000 unit) tablet 125 mcg PO DAILY biotin 1,000 mcg tablet,chewable 1,000 mcg PO DAILY cranberry 500 mg capsule 500 mg PO DAILY Rx Instructions: administer with a meal omeprazole magnesium [Prilosec OTC] 20 mg tablet,delayed release (DR/EC) 20 mg PO DAILY Zyrtec 10 mg capsule 10 mg PO DAILY triamcinolone acetonide [Nasacort] 55 mcg aerosol,spray 1 spray intranasal DAILY Rx Instructions: administer into each nostril Other Ambulatory Orders: PT Outpatient Eval and Treat (ONCE) Timeframe: [id number] Location: Determined by Patient Ordered By: Henrry Rust Date of admission: 06/09/25 01:57 Primary Care Provider: HarleenDylan Admitting Provider: Sanjuana Lewis Attending physician on admission: Sanjuana Lewis Condition: Stable
--- NOTE | 2025-06-09 17:58 | WPDNEURCNPN ---
Assessment and Plan Assessment and plan (1) Benign paroxysmal positional vertigo: Code(s): H81.10 - Benign paroxysmal vertigo, unspecified ear Status: Acute (2) HTN (hypertension) with goal to be determined: Code(s): I10 - Essential (primary) hypertension Status: Acute Plan From the cerebrovascular disease point of view she does have history of hypertension borderline his mellitus however MRI of the brain did not show any significant abnormalities. I reviewed the films and agree with the findings. Also CT angiogram head and neck did not show any significant abnormality. I noted that she has a mild left beating nystagmus. I explained to the her that if she has any further recurrence of the the symptoms persist then Keya maneuver be performed. They can find information and a video on [employer] video system. Finally the system persist or cause any problem there may be referred to vestibular therapist. Consult date: 06/09/25 HPI: Debo Le is a 75 year old female Who presented to the hospital with the onset of dizziness. The patient developed symptoms around 5:30 p.m. and she just had some food ice cream and sitting and watching TV when she developed the symptoms. She also had abdominal cramping and diaphoresis. She does not have history of similar symptoms in the past. She has a sense of spinning particularly when looking to the left side. She also had nausea but no vomiting. She does have some history of chronic sinus problems. No history of hearing loss or tinnitus. A CT angiogram head and neck and CT scan of brain was performed initially which did not show any significant abnormality. Subsequent MRI of the brain was also performed which did not show any abnormality. Her symptoms completely resolved. Family members are present the time of the evaluation particularly her and son. Review of Systems Review of Systems: Patient denies any cardiac symptoms or headache All systems reviewed & are unremarkable except as noted in HPI and below [facility] Past Medical History Medical History (Updated 06/09/25 @ 18:02 by Bret Olmos MD) Benign paroxysmal positional vertigo Cataract Gastroesophageal reflux disease HTN (hypertension) with goal to be determined Seasonal allergic rhinitis Surgical History Surgical History Total knee replacement status Bilateral History of tonsillectomy and adenoidectomy Family History Family History Mother Arrhythmia Pancreatic cancer Father CHF (congestive heart failure) Emphysema of lung Social History Social History Social History: The patient is . Her son continues to live with her. She has 4 children. 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 Smoking status: Never smoker Alcohol intake: current Drinks per week: 4 Substance use: never Lack of Transportation: No Lack of Food: Never True Current Housing: I Have Housing Concerned About Future Housing: No Difficulty Paying Gas/Electric Bills: No Difficulty Paying for Meds: No Currently Unemployed: YES Education: Decline to Answer Difficulty w/ Childcare or Family Care: No Spiritual care concerns: No Meds Home Medications and Allergies Home Medications ?Medication ?Instructions ?Recorded ?Confirmed ?Type albuterol sulfate 90 mcg/actuation 2 puff inhalation Q6H PRN 06/09/25 06/09/25 History aerosol inhaler shortness of breath or wheezing aspirin 81 mg capsule 81 mg PO DAILY 06/09/25 06/09/25 History biotin 1,000 mcg chewable tablet 1,000 mcg PO DAILY 06/09/25 06/09/25 History calcium 600 mg (as 1 tablet PO DAILY 06/09/25 06/09/25 History carbonate)-vitamin D3 10 mcg (400 unit) tablet (Calcium 600 + D(3)) cetirizine 10 mg capsule (Zyrtec) 10 mg PO DAILY 06/09/25 06/09/25 History cholecalciferol (vitamin D3) 125 125 mcg PO DAILY 06/09/25 06/09/25 History mcg (5,000 unit) tablet (Vitamin D3) cranberry 500 mg capsule 500 mg PO DAILY 06/09/25 06/09/25 History cyanocobalamin (vitamin B-12) 500 500 mcg PO DAILY 06/09/25 06/09/25 History mcg tablet gabapentin 100 mg capsule 100 mg PO TID 06/09/25 06/09/25 History hydrochlorothiazide 12.5 mg capsule 25 mg PO EVERY OTHER DAY 06/09/25 06/09/25 History losartan 25 mg tablet 25 mg PO DAILY 06/09/25 06/09/25 History meclizine 25 mg tablet 25 mg PO BID PRN dizziness 14 days 06/09/25 Rx #10 tabs metoprolol succinate 100 mg 100 mg PO DAILY 06/09/25 06/09/25 History tablet,extended release 24 hr omeprazole magnesium 20 mg 20 mg PO DAILY 06/09/25 06/09/25 History tablet,delayed release (Prilosec OTC) triamcinolone acetonide 55 mcg 1 spray intranasal DAILY 06/09/25 06/09/25 History nasal spray aerosol (Nasacort) Allergies Allergy/AdvReac Type Severity Reaction Status Date / Time cefuroxime Allergy Swelling Verified 06/09/25 02:55 of the Eye clindamycin Allergy Rash Verified 06/09/25 02:55 Sulfa (Sulfonamide Allergy Swelling Verified 06/09/25 02:55 Antibiotics) of the Eye seafood Allergy Severe Anaphylactic Uncoded 06/09/25 02:55 Shock Vital Signs Vital Signs - 24 hr 06/08/25 18:50 06/08/25 19:23 06/08/25 21:58 Temperature 97.2 F L Pulse Rate 63 63 62 Respiratory Rate 18 18 Blood Pressure 156/85 H 120/78 123/77 Pulse Oximetry 96 94 Oxygen Delivery Room Air 06/08/25 22:01 06/08/25 22:02 06/09/25 00:23 Temperature 97.2 F L Pulse Rate 56 L 64 69 Respiratory Rate 18 Blood Pressure 139/85 145/106 H 158/85 H Pulse Oximetry 97 Oxygen Delivery 06/09/25 04:00 06/09/25 04:00 06/09/25 04:00 Temperature 97.6 F Pulse Rate 62 71 72 Respiratory Rate 19 Blood Pressure 121/69 Pulse Oximetry 93 Oxygen Delivery 06/09/25 07:52 06/09/25 08:00 06/09/25 09:05 Temperature 97.6 F Pulse Rate 72 72 65 Respiratory Rate 16 Blood Pressure 117/72 Pulse Oximetry 93 Oxygen Delivery 06/09/25 10:00 06/09/25 11:44 06/09/25 11:45 Temperature 97.8 F 97.8 F Pulse Rate 53 L 60 60 Respiratory Rate 16 16 Blood Pressure 106/59 L 106/59 L Pulse Oximetry 96 96 Oxygen Delivery 06/09/25 11:46 06/09/25 11:46 06/09/25 12:00 Temperature Pulse Rate Respiratory Rate Blood Pressure 129/71 108/74 Pulse Oximetry Oxygen Delivery Room Air 06/09/25 12:00 06/09/25 14:00 06/09/25 16:00 Temperature Pulse Rate 68 62 68 Respiratory Rate Blood Pressure Pulse Oximetry Oxygen Delivery Exam Const: General: cooperative, well developed and alert Orientation/consciousness: oriented to person, oriented to place and oriented to time HENMT: Head: atraumatic Mouth: Yes oropharynx normal Eyes: Alignment and Position: position normal Pupils: Equal, round and reactive pupils present EOM: EOMs intact bilaterally Neck: Neck: supple Resp: Effort & Inspection: normal respiratory effort Cardio: Rhythm: regular rhythm Skin: General skin exam: normal color Neuro: General: Unable to assess gait Cranial nerves: Yes CN's II-XII intact bilaterally, Yes Equal, round and reactive pupils present, Yes Bilaterally intact EOM present, Yes Nystagmus not present ( mild left beating nystagmus was seen), Yes facial symmetry, Yes Midline tongue present, Yes Symmetric palate elevation present and Yes Ability to bilaterally elevate shoulders present Cognition (Neuro): normal cognition Speech: normal speech Motor exam (neuro): 5/5 motor strength present throughout, Motor fasciculations not present, Normal motor muscle tone present throughout, Motor abnormalities not present and Tremors during motor activity present Sensory Exam: normal sensation Coordination: [id number] test normal and Normal rapid alternating movements of the distal upper extremity present (Neuro) Extrem: General: normal to inspection Psych: Mental Status: mental status grossly normal Affect: normal affect Results Labs 06/08/25 18:55 06/08/25 18:55 Labs: Short CBC 06/08/25 Range/Units 18:55 WBC 10.3 H (4.5-10.0) K/mm3 Hgb 13.9 (12.0-15.0) g/dL Hct 42.1 (37.0-47.0) % Plt Count 249 (150-375) k/mm3 BMP 06/08/25 18:55 Sodium 132 L Potassium 3.6 Chloride 94 L Carbon Dioxide 28 BUN 16 Creatinine 0.88 Glucose 176 H Calcium 9.6 Cardiac Enzymes 06/08/25 06/08/25 Range/Units 18:55 21:59 Troponin I < 0.012 < 0.012 (0.000-0.034) ng/mL Liver Function 06/08/25 Range/Units 18:55 Total Bilirubin 0.7 (0.2-1.3) mg/dL AST 25 (14-36) U/L ALT 17 (6-35) U/L Alkaline Phosphatase 105 (38-126) U/L Albumin 4.2 (3.5-5.1) g/dL Urine 06/08/25 Range/Units 20:33 Urine Color Dark yellow (Yellow) Urine Appearance Cloudy H (Clear) Urine pH 5.5 (5.0-9.0) Ur Specific [place] 1.027 (1.001-1.035) Urine Protein Negative (Negative) mg/dL Urine Glucose (UA) Negative (Negative) mg/dL
== END 2025-06-09 17:07 | disposition home or self-care (01) ==
LOC: ANHED 06-09 01:57 → ANHIMU 06-09 12:13
PROVIDERS: Emergency Medicine; Nurse Practitioner; Admitting Provider General Practice; Emergency Provider Physician Assistant; PCP Internal Medicine; Visit Provider Internal Medicine
DX: H81.10 Benign paroxysmal vertigo, unspecified ear (principal); R10.13 Epigastric pain; K21.9 Gastro-esophageal reflux disease without esophagitis; I10 Essential (primary) hypertension; J30.2 Other seasonal allergic rhinitis; R79.0 Abnormal level of blood mineral; H55.09 Other forms of nystagmus; Z79.51 Long term (current) use of inhaled steroids; Z79.82 Long term (current) use of aspirin; Z79.01 Long term (current) use of anticoagulants; Z96.653 Presence of artificial knee joint, bilateral; Z80.0 Family history of malignant neoplasm of digestive organs; Z82.49 Family history of ischemic heart disease and other diseases of the circulatory system; Z83.6 Family history of other diseases of the respiratory system
CPT/HCPCS: 36415; 70496; 70498; 70553; 71046; 80053; 81001; 83735; 84484; 85025; 85610; 85730; 93005; 96361; 96365; 96375; 99285; A9270; A9577; G0378; J2405; J2470; J2765; J3360; J3475; J7030; Q9967